=== PATIENT | female | born 1970 | race Caucasian/White ===

== ENCOUNTER 2021-04-24 12:23 | Emergency (ER) | payer SELFPAY ==
--- NOTE | ~2021-04-24 | XR_ITS ---
EXAMINATION: XR shoulder LT min 2V, XR humerus LT EXAM DATE: 04/24/2021 13:57 INDICATION: Left shoulder, humeral pain when moving. TECHNIQUE: The following left shoulder projections obtained: frontal projection with internal rotatio n, frontal projection with external rotation, Grashey, and scapular Y view (4+ views). 2 orthogonal projections left humerus. There are no prior studies for comparison. FINDINGS: Right hilar calcified granulomas. No evidence of left shoulder rotator cuff calcific tendin osis. There is mild to moderate glenohumeral joint, mild to moderate acromioclavicular joint primary osteoarthritis. There are no acute fractures or dislocations identified. There is no subcutaneous g as. The soft tissue is unremarkable. There are no radiopaque foreign bodies. IMPRESSION: Mild to moderate left shoulder osteoarthritis. Reviewed, dictated and finalized at location G. [employer] IMPRESSION: Mild to moderate left shoulder osteoarthritis.
[2021-04-24 12:30] VITALS: BP 134/85; PULSE 106; RESP 20; TEMP 36.3; O2SAT 95
[2021-04-24] MEDS: KETOROLAC (*BKC) 60 MG/2 ML VIAL IM (14:02)
--- NOTE | 2021-04-24 14:26 | ED.UPPEXIN ---
HPI - Extremity Injury (Upper) General Chief Complaint: Extremity Injury, Upper Stated Complaint: moving desk, sharp pain in left arm/tingling finge Time Seen by Provider: 04/24/21 12:25 Source: patient and RN notes reviewed Mode of arrival: ambulatory Limitations: no limitations History of Present Illness HPI narrative: pt was moving a desk and the left shoulder popped and is now pain-ful. complaint: injury to: left and shoulder Onset (ago): hour(s) (1) Other injuries: none Place: work Severity scale (1-10): 7 Relieving factors: none Exacerbating factors: movement of extremity Associated symptoms: denies other symptoms and heard/felt popping sensation Related Data Home Medications Medication Instructions Recorded Confirmed diltiazem HCl 180 mg capsule,24 180 mg PO DAILY 04/26/21 hr,extended release losartan 50 mg tablet 50 mg PO DAILY 04/26/21 lovastatin 20 mg tablet 20 mg PO DAILY 04/26/21 montelukast 10 mg tablet 10 mg PO DAILY 04/26/21 sertraline 100 mg tablet 100 mg PO DAILY 04/26/21 Allergies Allergy/AdvReac Type Severity Reaction Status Date / Time No Known Allergies Allergy Verified 04/26/21 07:15 Review of Systems Review of Systems: All systems reviewed & are unremarkable except as noted in HPI and below Musculoskeletal: Musculoskeletal: Reports arthralgias PMFSH Past Medical History Medical History Allergies Depression Hypercholesterolemia Hypertension Surgical History Surgical History History of left knee replacement Social History Social History Smoking packs per day: 1 Smoking cigarettes per day: 20.0 Years smoked: 25 Smoking pack-years: 25.00 Smoking status: Current every day smoker Tobacco type: cigarettes Exam Const: General: healthy appearing, no acute distress and alert Nutritional Appearance: obese Orientation/consciousness: patient oriented x3 Limitations: no limitations HENMT: General nose exam: Normal external nose present and Normal nares present Mouth: Yes moist mucous membranes Eyes: Conjunctivae: conjunctivae normal Pupils: Equal, round and reactive pupils present EOM: EOMs intact bilaterally Neck: Neck: normal visual inspection Other: neck supple. Chest: Chest palpation & inspection: normal inspection of the chest Resp: Effort & Inspection: normal respiratory effort Auscultation: clear to auscultation bilaterally Cardio: Rate: regular rate Rhythm: regular rhythm GI: GI Palp: Yes Soft to palpation and No Tenderness to palpation present (GI) Auscultation: normal bowel sounds : General: Yes bladder normal to palpation and Yes no CVA tenderness External Female Exam: normal external appearance Back/Spine/Pelvis: Back: no CVA tenderness Skin: General skin exam: normal color, jaundice and pallor Rashes: no rashes Neuro: General: patient oriented x3, moves all extremities, no meningeal signs, no focal motor deficits and CN's II-XI intact bilaterally Extrem: General: normal to inspection and no pedal edema Other: full ROM left shoulder with pain. no acute neurovascular deficit. Psych: Appearance: grossly normal and well kempt Mental Status: mental status grossly normal Affect: normal affect Thought content: Yes Normal thought content present Course Course Emergency Course: Stable pt with less left shoulder pain. Reevaluation(s) Reevaluation #1: VSS. comfortable pt with sling in situ. Date: 04/24/21 Time: 13:20 Vital Signs Vital signs: Vital Signs Temperature 36.3 C L 04/24/21 12:30 Pulse Rate 106 H 04/24/21 12:30 Respiratory Rate 04/24/21 12:30 Blood Pressure 134/85 04/24/21 12:30 Pulse Oximetry 95 04/24/21 12:30 Temperature 36.8 C 04/24/21 14:57 Pulse Rate 102 H 04/24/21 14:57 Respiratory Rate 20 04/24/21 14:57 Blood Pr
[2021-04-24 14:57] VITALS: BP 156/97; PULSE 102; RESP 20; TEMP 36.8; O2SAT 96
== END 2021-04-24 15:01 | disposition home or self-care (01) ==
PROVIDERS: Emergency Provider Emergency Medicine
DX: M25.512 Pain in left shoulder (principal)
CPT/HCPCS: 73030; 73060; 96372; 99283; A4565; J1885

== ENCOUNTER 2021-05-01 08:38 | Outpatient (CLI) | payer OTHER, SELFPAY ==
--- NOTE | ~2021-05-01 | MR_ITS ---
EXAMINATION: MR shoulder LT wo con DATE: 05/01/2021 09:42 INDICATION: Strain of muscle and tendon of the rotator cuff. Left shoulder pain. TECHNIQUE: Magnetic resonance imaging (MRI) of the left shoulder was performed without intravenous co ntrast. Sequences included axial PD-weighted FS FSE, coronal oblique PD-weighted FS FSE and T2-weight ed FS FSE, and sagittal oblique T2-weighted FS FSE and T1-weighted FSE. COMPARISON: Left shoulder radiographs 04/24/2021 FINDINGS: Coracoacromial arch: The acromion undersurface is flat in morphology (type I). There is moderate acromial clavicular joint osteomyelitis including inferiorly directed osteophytes. There is mild subacromial/subdeltoid bursit is. Rotator cuff: There is severe supraspinatus tendinopathy and moderate infraspinatus tendinopathy. No tear. Teres mi nor tendon is normal. There is mild subscapularis tendinopathy. There are dystrophic calcifications a t the greater tuberosity abutting the bicipital groove. There is no asymmetric fatty atrophy of the r otator cuff muscle bellies. Biceps tendon and glenoid labrum: Biceps tendon is in bicipital groove. There is mild intra-articular biceps tendinopathy. There is deg eneration of superior labrum without well-defined tear. Fluid: There is a small glenohumeral joint effusion. Bones/cartilage: There is posterior subluxation of humeral head with respect to glenoid. There is cartilage surface ir regularity of humeral head and glenoid. IMPRESSION: 1. Severe rotator cuff tendinopathy. No tear. Dystrophic calcifications abutting the greater tuberosi ty and bicipital groove. 2. Mild glenohumeral joint chondrosis. 3. Moderate acromioclavicular joint osteoarthritis. 4. Mild subacromial/subdeltoid bursitis. 5. Small glenohumeral joint effusion. 6. Mild intra-articular biceps tendinopathy. Reviewed, dictated and finalized at location A. IC BALANCER IMPRESSION: 1. Severe rotator cuff tendinopathy. No tear. Dystrophic calcifications abuttin g the greater tuberosity and bicipital groove. 2. Mild glenohumeral joint chondrosis. 3. Moderate acromioclavicular joint osteoarthritis. 4. Mild subacromial/subdeltoid bursitis. 5. Small glenohumeral joint effusion. 6. Mild intra-articular biceps tendinopathy.
== END 2021-05-01 08:39 | disposition home or self-care (01) ==
LOC: CHSIMG 08:40
PROVIDERS: PCP Family Medicine; Visit Provider Family Medicine
DX: M25.512 Pain in left shoulder (principal); S46.012A Strain of muscle(s) and tendon(s) of the rotator cuff of left shoulder, initial encounter
CPT/HCPCS: 73221